=== PATIENT | male | born 1960 | race Caucasian/White ===

== ENCOUNTER → 2016-03-15 | Outpatient (CLI) | payer BC ==
[2016-03-15 14:14] LABS: AMPHETAMINES/METAMPHETAMINES NEGATIVE ng/mL (<1000)
== END ==
LOC: LAB 13:44
PROVIDERS: Emergency Medicine
DX: Z79.899 Other long term (current) drug therapy (principal)

== ENCOUNTER → 2016-04-09 | Outpatient (CLI) | payer BC ==
--- NOTE | 2016-04-11 11:35 | RADIOLOGY REPORT PS360 ---
MRI-C-SPINE W/O, MRI-3D RENDERING/MYELOGRAM ORDERING PHYSICIAN : Rico El MD PATIENT AGE: 56 years GENDER: Male INDICATION: CERVICALGIA. Radiculopathy Left arm and hand tingling. Pain left shoulder blade 1 week. TECHNIQUE: Sagittal STIR, T1, T2, axial T1 and T2. On 1.5T Siemens wide bore MRI. 3-D MR myelogram image set obtained & performed on MRI workstation. Additional sagittal thin section T2 weighted dataset obtained from this latter acquisition as well (---76 CPT) COMPARISON: Plain films cervical spine 04/09/2016 FINDINGS Cranial cervical junction is normal. C2/3 disc intact unremarkable C3/4. Disc intact. Scant uncovertebral joint hypertrophy to the right Very slightly indents the anterior right corner of thecal sac towards lateral recess C4/5 : Disc intact with only scant central disc bulge. Barely evident C5-C6 mixed disc protrusion to the left. Soft disc extends slightly beyond spurring here seen to the left. . There is broad-based indentation upon thecal sac left paracentral.Features abuts and mildly efface the left anterior aspect of the cervical cord, & and yield generous encroachment upon left lateral recess and entry of left foramen. This finding likely correspond with the patient's left radiculopathy.Neurosurgical consult warranted C6-7. Mild degenerative disc space narrowing with bilateral uncovertebral joint hypertrophy. . Moderate/generous bilateral foraminal encroachment most evident to the right . Small mixed mainly hard disc this feature most evident at right lateral recess and injury right foramen C7/T1. Disc intact There is diffuse increased fat signal at C7 vertebra. Thus reflects benign process of most likely a benign hemangioma. The other vertebral bodies visualized on have similar signal in the slightly decreased versus normal which could reflect underlying anemia. Unlikely diffuse process-doubt myeloma for example.. On the most inferior aspect of the images today I would note facet hypertrophy bilaterally at most evident at T2/T3 and to lesser degree T1/T2.] C7/T1. These hypertrophic facets do appear to encroach upon posterior aspect of the neural foramen bilaterally at these levels. 3-D MR myelogram image set shows definite focal leftward indentation upon the thecal sac at C5-C6 . Mild diffuse indentation upon the anterior thecal sac at C 6/7 Cerebral IMPRESSION: 1.... C5-C6. Broad-based mixed disc protrusion left paracentral.-. Appears soft disc extends slightly beyond the associated spurring at left paracentral region. Features Indents/ effaces the left anterior aspect cervical cord, & encroaches upon the left lateral recess and and left foramen. 2.... C6/7. Disc/osteophyte features indenting thecal sac.. Uncovertebral joint hypertrophy right greater than left. Additional note small mixed mainly hard disc indenting right corner of thecal sac. Generous Bilateral foraminal encroachment right greater than left 3.... Benign hemangioma accounts for increased signal at C7.
--- NOTE | 2016-04-11 11:39 | RADIOLOGY REPORT PS360 ---
CERVICAL SPINE 4 OR 5 VIEWS ORDERING PHYSICIAN : Rico El MD PATIENT AGE: 56 years GENDER: Male INDICATION: CERVALGIA Pain in neck. Numbness fingers. No known injury. TECHNIQUE: A five-view cervical spine series COMPARISON: Previous MRI C-spine to 171 FINDINGS Normal alignment. Mild degenerative disc space narrowing C5/C6 & C6/7. Minor early anterior osteophytes at C5-C6 associated Note uncovertebral joint hypertrophy/spurring which encroach upon the right foramen bilaterally at C6/7. Also suggestive some early facet hypertrophy at T1/T2 T2/T3 noted to correspond with MRI findings. Also some mild facet hypertrophy right C4/5 encroach upon right foramen slightly. C1/2 appear intact and unremarkable. The prevertebral soft tissues appear normal. . IMPRESSION: Developing relatively minimal Degenerative changes cervical spine on plain film as outlined above
== END ==
LOC: RAD 13:10
DX: M54.2 Cervicalgia (principal)